=== PATIENT | female | born 1955 | race Caucasian/White ===

== ENCOUNTER → 2020-01-24 | Outpatient (CLI) | payer BC ==
--- NOTE | 2020-01-24 16:52 | CT ---
EXAMINATION TYPE: CT urogram wo/w con DATE OF EXAM: 01/24/2020 COMPARISON: None INDICATION: Hematuria and pelvic pain DLP: 1996 mGycm, Automated exposure control for dose reduction was used. CONTRAST: 100 mL of Isovue 300. Study performed TECHNIQUE: Axial images were obtained from above the diaphragm to the pubic rami in the axial plane a t 5 mm thick sections. Reconstructed images are reviewed on the computer in the coronal plane. Thre e-D reconstructed images performed separately by the technologist are reviewed. Both pre and postcont rast imaging and delayed imaging is performed. FINDINGS: Limited CT sections are obtained the lung bases. The lung bases are clear. Hiatal hernia is present . CT ABDOMEN: Liver: Tiny hepatic cyst is likely present. Spleen: Normal Pancreas: Normal Adrenal glands: The adrenal glands are normal. Gallbladder: Normal Kidneys: No masses are evident. No hydronephrosis is present. No cysts are present. Delayed images were obtained through the kidneys, which remain unremarkable. Aorta: Vascular calcification is within the aorta. Inferior vena cava: Normal. CT PELVIS: Loops of bowel within the abdomen and pelvis are normal. There are loops of bowel which are incom pletely distended or lack oral contrast limiting their evaluation. Appendix: Normal as visualized. Urinary bladder: Normal. Genitourinary structures: Uterus and ovaries Osseous structures: No suspicious lytic or sclerotic lesions. Three-D reconstructed images are reviewed. All and axial images are reviewed. No hydronephrosis or hy droureter is evident. The right ureter is better visualized than the left. Both appear patent to the level of the urinary bladder. Urinary bladder fills normally without interval taller extramural defec ts. The right ureter appears to be posterior to the gonadal vein near the renal pelvis. There is also posterior to the right iliac artery as is the left ureter. No suspicious filling defects are evident . IMPRESSIONS: 1. No suspicious abnormality to account for hematuria.
== END | disposition home or self-care (01) ==
LOC: RADCTMAIN 11:46
PROVIDERS: ATTEND Urology
DX: R31.9 Hematuria, unspecified (principal); Z88.0 Allergy status to penicillin
CPT/HCPCS: 74178; 74400; Q9967